=== PATIENT | male | born 1945 | race Caucasian/White ===

== ENCOUNTER 2017-10-11 11:09 | Day surgery (SDC) | payer MEDICARE, OTHER ==
[~2017-10-11] VITALS: Ht 180.3 cm; Wt 86.2 kg
[~2017-10-11 11:09] MED LIST: ASPI81CH PO; ATOR40TA PO; CEPH500 PO; CLOP75 PO; HYDACE5 PO; Hydrochloroth12.5 MG PO; LOSA25 PO; MECL12.5; TRAZ50 PO
== END 2017-10-11 13:01 | disposition home or self-care (01) ==
LOC: ORSCSDS 11:09
PROVIDERS: Internal Medicine Gastroenterology
PROC: 0DBH8ZX Excision of Cecum, Via Natural or Artificial Opening Endoscopic, Diagnostic (ICD-10-PCS; principal; 2017-10-11 12:15)
PROC: 0DBL8ZX Excision of Transverse Colon, Via Natural or Artificial Opening Endoscopic, Diagnostic (ICD-10-PCS; principal; 2017-10-11 12:15)
PROC: 0DBM8ZX Excision of Descending Colon, Via Natural or Artificial Opening Endoscopic, Diagnostic (ICD-10-PCS; principal; 2017-10-11 12:15)
DX: Z12.11 Encounter for screening for malignant neoplasm of colon (principal); D12.3 Benign neoplasm of transverse colon; D12.4 Benign neoplasm of descending colon; K63.5 Polyp of colon; K64.8 Other hemorrhoids; I69.398 Other sequelae of cerebral infarction; H53.9 Unspecified visual disturbance; I10 Essential (primary) hypertension; E78.5 Hyperlipidemia, unspecified; Z86.010 Personal history of colon polyps; Z79.01 Long term (current) use of anticoagulants; Z79.82 Long term (current) use of aspirin; Z79.899 Other long term (current) drug therapy
CPT/HCPCS: 88305; J1980; J7120

== ENCOUNTER → 2020-01-24 | Outpatient (CLI) | payer MEDICARE, OTHER | LOC: PLD 08:01 → LAB SHORT 08:01 | DX: L81.4 Other melanin hyperpigmentation (principal); L73.8 Other specified follicular disorders | CPT/HCPCS: 88342 ==

== ENCOUNTER → 2021-01-27 | Outpatient (CLI) | payer MEDICARE, OTHER ==
[2021-01-27 16:20] LABS: Alanine Aminotransfer (ALT/SGP 31 U/L (12-78); Albumin, Blood 3.6 g/dL (3.4-5.0); Albumin/Globulin Ratio 1.4 (0.8-1.8); Alk Phos 93 U/L (50-136); Anion Gap 5 mmol/L (6-16); Aspartate Aminotrans (AST/SGOT 23 U/L (12-37); Bilirubin, Total 0.5 mg/dL (0.1-1.0); Blood Urea Nitrogen 25 mg/dL (8-24); Bun/Creatinine Ratio 25.6 (12.0-20.0); CO2, Blood 27 mmol/L (21-32); Calcium, Blood 9.5 mg/dL (8.5-10.1); Chloride, Blood 109 mmol/L (98-108); Creatinine, Blood 0.98 mg/dL (0.60-1.20); Globulin, Blood 2.6 g/dL (2.2-4.0); Glomerular Filtration Rate >60 (60-); Glucose, Blood 98 mg/dL (70-99); Lactate Dehydrogenase (Ld),Bld 210 U/L (100-240); Phosphorus, Blood 3.2 mg/dL (2.5-4.9); Potassium, Blood 4.2 mmol/L (3.5-5.5); Sodium, Blood 141 mmol/L (136-145); Total Protein, Blood 6.2 g/dL (6.4-8.2)
[2021-01-27 16:25] LABS: Thyroxine (T4) 7.9 ug/dL (4.5-12.1)
== END | disposition home or self-care (01) ==
LOC: LAB 13:59 → LAB SHORT 13:59
PROVIDERS: Internal Medicine Hematology & Oncology
DX: C43.9 Malignant melanoma of skin, unspecified (principal); I10 Essential (primary) hypertension
CPT/HCPCS: 80053; 83615; 84100; 84436; 84443

== ENCOUNTER → 2021-02-19 | Outpatient (CLI) | payer MEDICARE, OTHER ==
[2021-02-19 19:25] LABS: Alanine Aminotransfer (ALT/SGP 49 U/L (12-78); Albumin, Blood 3.1 g/dL (3.4-5.0); Albumin/Globulin Ratio 0.9 (0.8-1.8); Alk Phos 83 U/L (50-136); Anion Gap 3 mmol/L (6-16); Aspartate Aminotrans (AST/SGOT 18 U/L (12-37); Bilirubin, Direct <0.1 mg/dL (0.0-0.3); Bilirubin, Indirect Unable to Calculate mg/dL (0.1-0.7); Bilirubin, Total 0.3 mg/dL (0.1-1.0); Blood Urea Nitrogen 43 mg/dL (8-24); Bun/Creatinine Ratio 52.6 (12.0-20.0); CO2, Blood 27 mmol/L (21-32); Calcium, Blood 10.2 mg/dL (8.5-10.1); Chloride, Blood 110 mmol/L (98-108); Creatinine, Blood 0.82 mg/dL (0.60-1.20); Globulin, Blood 3.4 g/dL (2.2-4.0); Glomerular Filtration Rate >60 (60-); Glucose, Blood 90 mg/dL (70-99); Phosphorus, Blood 3.1 mg/dL (2.5-4.9); Potassium, Blood 4.1 mmol/L (3.5-5.5); Sodium, Blood 140 mmol/L (136-145); Thyroid Stimulating Hormone 0.007 uIU/mL (0.360-4.800); Thyroxine (T4) 15.7 ug/dL (4.5-12.1); Total Protein, Blood 6.5 g/dL (6.4-8.2)
[2021-02-20 19:07] LABS: FREE TESTOSTERONE(DIRECT) 11.4 pg/mL (6.6-18.1); TESTOSTERONE, SERUM 772 ng/dL (264-916)
== END | disposition home or self-care (01) ==
LOC: LAB SHORT 10:20
PROVIDERS: Internal Medicine Hematology & Oncology
DX: C43.9 Malignant melanoma of skin, unspecified (principal); I67.9 Cerebrovascular disease, unspecified; I10 Essential (primary) hypertension; E78.00 Pure hypercholesterolemia, unspecified; N40.0 Benign prostatic hyperplasia without lower urinary tract symptoms
CPT/HCPCS: 80053; 80076; 84100; 84402; 84403; 84436; 84443

== ENCOUNTER → 2021-03-05 | Outpatient (CLI) | payer MEDICARE, OTHER ==
[2021-03-05 12:40] LABS: Alanine Aminotransfer (ALT/SGP 28 U/L (12-78); Albumin, Blood 3.1 g/dL (3.4-5.0); Albumin/Globulin Ratio 1.1 (0.8-1.8); Alk Phos 73 U/L (50-136); Anion Gap 5 mmol/L (6-16); Aspartate Aminotrans (AST/SGOT 11 U/L (12-37); Bilirubin, Direct 0.1 mg/dL (0.0-0.3); Bilirubin, Indirect 0.3 mg/dL (0.1-0.7); Bilirubin, Total 0.4 mg/dL (0.1-1.0); Blood Urea Nitrogen 41 mg/dL (8-24); CO2, Blood 29 mmol/L (21-32); Calcium, Blood 9.5 mg/dL (8.5-10.1); Chloride, Blood 108 mmol/L (98-108); Creatinine, Blood 1.17 mg/dL (0.60-1.20); Globulin, Blood 2.7 g/dL (2.2-4.0); Glomerular Filtration Rate >60 (60-); Glucose, Blood 86 mg/dL (70-99); Phosphorus, Blood 3.2 mg/dL (2.5-4.9); Potassium, Blood 4.1 mmol/L (3.5-5.5); Sodium, Blood 142 mmol/L (136-145); Thyroxine (T4) 1.4 ug/dL (4.5-12.1); Total Protein, Blood 5.8 g/dL (6.4-8.2)
== END | disposition home or self-care (01) ==
LOC: LAB SHORT 09:15 → LAB 09:15
PROVIDERS: Internal Medicine Hematology & Oncology
DX: C43.9 Malignant melanoma of skin, unspecified (principal); I67.9 Cerebrovascular disease, unspecified; E78.00 Pure hypercholesterolemia, unspecified
CPT/HCPCS: 80053; 82248; 84100; 84436; 84443

== ENCOUNTER → 2021-03-10 | Outpatient (CLI) | payer MEDICARE, OTHER ==
[2021-03-11 00:59] LABS: C DIFFICILE DNA NEGATIVE (Negative)
== END | disposition home or self-care (01) ==
LOC: LAB 16:15 → LAB SHORT 16:15
PROVIDERS: Internal Medicine Hematology & Oncology
DX: C43.9 Malignant melanoma of skin, unspecified (principal); R19.7 Diarrhea, unspecified
CPT/HCPCS: 87493

== ENCOUNTER → 2021-03-23 | Outpatient (CLI) | payer MEDICARE, OTHER ==
[2021-03-23 12:03] LABS: BASOPHILS ABSOLUTE AUTO 0.03 K/mm3 (0.00-0.23); BASOPHILS PERCENT AUTO 0 % (0-2); EOSINOPHILS ABSOLUTE AUTO 0.19 K/mm3 (0.00-0.68); EOSINOPHILS PERCENT AUTO 3 % (0-6); Hematocrit 41.3 % (37.0-53.0); Hemoglobin 13.8 g/dL (13.5-17.5); IMMATURE GRAN ABSOLUTE AUTO 0.02 K/mm3 (0.00-0.10); IMMATURE GRAN PERCENT AUTO 0 % (0-1); LYMPHOCYTES ABSOLUTE AUTO 1.54 K/mm3 (0.84-5.20); LYMPHOCYTES PERCENT AUTO 23 % (21-46); MONOCYTES ABSOLUTE AUTO 0.51 K/mm3 (0.16-1.47); MONOCYTES PERCENT AUTO 8 % (4-13); Mean Corpuscular HGB 31.4 pg (26.0-34.0); Mean Corpuscular HGB Conc 33.4 g/dL (31.5-36.5); Mean Corpuscular Volume 94 fL (80-100); Mean Platelet Volume 11.3 fL (9.1-12.4); NEUTROPHILS PERCENT AUTO 66 % (41-73); Platelet Count 246 K/mm3 (150-400); RDW Coefficient Variation 13.6 % (11.7-14.2); RDW Standard Deviation 46.8 fL (35.1-46.3); White Blood Cell Count 6.69 K/mm3 (4.00-11.30)
[2021-03-23 12:12] LABS: Thyroid Stimulating Hormone 43.2 uIU/mL (0.360-4.800)
[2021-03-23 12:18] LABS: Albumin, Blood 3.3 g/dL (3.4-5.0); Bilirubin, Total 0.9 mg/dL (0.1-1.0); Bun/Creatinine Ratio 34.4 (12.0-20.0); Calcium, Blood 9.8 mg/dL (8.5-10.1); Creatinine, Blood 1.25 mg/dL (0.60-1.20); Globulin, Blood 3.3 g/dL (2.2-4.0); Phosphorus, Blood 3.6 mg/dL (2.5-4.9); Potassium, Blood 4.8 mmol/L (3.5-5.5); Total Protein, Blood 6.6 g/dL (6.4-8.2)
== END | disposition home or self-care (01) ==
LOC: LAB SHORT 10:15
PROVIDERS: Internal Medicine Hematology & Oncology
DX: C43.9 Malignant melanoma of skin, unspecified (principal); E78.00 Pure hypercholesterolemia, unspecified
CPT/HCPCS: 80053; 84100; 84436; 84443; 85025

== ENCOUNTER 2021-03-30 12:30 | Emergency (ER) | payer MEDICARE, OTHER ==
[~2021-03-30] VITALS: Ht 180.3 cm; Wt 79.4 kg
[2021-03-30 13:20] LABS: BASOPHILS ABSOLUTE AUTO 0.02 K/mm3 (0.00-0.23); BASOPHILS PERCENT AUTO 0 % (0-2); EOSINOPHILS ABSOLUTE AUTO 0.12 K/mm3 (0.00-0.68); EOSINOPHILS PERCENT AUTO 2 % (0-6); Hematocrit 36.2 % (37.0-53.0); Hemoglobin 12.7 g/dL (13.5-17.5); IMMATURE GRAN ABSOLUTE AUTO 0.06 K/mm3 (0.00-0.10); IMMATURE GRAN PERCENT AUTO 1 % (0-1); LYMPHOCYTES PERCENT AUTO 20 % (21-46); MONOCYTES ABSOLUTE AUTO 0.41 K/mm3 (0.16-1.47); MONOCYTES PERCENT AUTO 8 % (4-13); Mean Corpuscular HGB 31.3 pg (26.0-34.0); Mean Corpuscular HGB Conc 35.1 g/dL (31.5-36.5); Mean Corpuscular Volume 89 fL (80-100); Mean Platelet Volume 11.4 fL (9.1-12.4); NEUTROPHILS ABSOLUTE AUTO 3.29 K/mm3 (1.96-9.15); NEUTROPHILS PERCENT AUTO 67 % (41-73); Platelet Count 167 K/mm3 (150-400); RDW Coefficient Variation 12.5 % (11.7-14.2); RDW Standard Deviation 40.7 fL (35.1-46.3); Red Blood Cell Count 4.06 M/mm3 (4.30-5.90)
[2021-03-30 13:48] LABS: Alanine Aminotransfer (ALT/SGP 67 U/L (12-78); Albumin, Blood 2.6 g/dL (3.4-5.0); Albumin/Globulin Ratio 0.9 (0.8-1.8); Alk Phos 78 U/L (50-136); Anion Gap 15 mmol/L (6-16); Aspartate Aminotrans (AST/SGOT 54 U/L (12-37); Bilirubin, Total 1.3 mg/dL (0.1-1.0); Blood Urea Nitrogen 28 mg/dL (8-24); CO2, Blood 26 mmol/L (21-32); Calcium, Blood 8.4 mg/dL (8.5-10.1); Chloride, Blood 86 mmol/L (98-108); Creatinine, Blood 0.93 mg/dL (0.60-1.20); Ethanol (Alcohol), Blood, Med <3 mg/dL; Glomerular Filtration Rate >60 (60-); Glucose, Blood 314 mg/dL (70-99); Potassium, Blood 4.3 mmol/L (3.5-5.5); Sodium, Blood 127 mmol/L (136-145); Total Protein, Blood 5.6 g/dL (6.4-8.2)
[2021-03-30 14:08] LABS: Source, Urine Voided
[2021-03-30 14:15] LABS: Appearance, Urine Clear (Clear); Bilirubin, Urine Neg (Neg); Blood, Urine 4+ (Neg); Color, Urine Yellow (P-Yellow); Glucose Qualitative, Urine 4+ (Neg); Ketones, Urine 4+ (Neg); Leukocyte Esterase, Urine Neg (Neg); Nitrite, Urine Neg (Neg); Protein, Urine Neg (Neg); Specific Gravity, Urine 1.015 (1.003-1.022); Urobilinogen, Urine NORM (Normal)
[2021-03-30 14:24] LABS: U Amphetamine Screen Not Detected; U Barbituate Screen Not Detected; U Benzodiazapine Screen Not Detected; U Buprenorphine Screen Not Detected; U Cannabinoids Screen Not Detected; U Cocaine Screen Not Detected; U Methadone Screen Not Detected; U Methamphetamine Screen Not Detected; U Opiates Screen Not Detected; U Oxycodone Screen Not Detected; U Phencyclidine Screen Not Detected; U Propoxyphene Screen Not Detected
[2021-03-30 14:26] LABS: Bacteria Few /hpf; Squamous Epithelial Cells Not Seen /hpf (Few)
[2021-03-30] MEDS ORDERED: METF500 PO (16:49)
== END 2021-03-30 17:03 | disposition home or self-care (01) ==
LOC: ER 12:30
PROVIDERS: Emergency Medicine
DX: R73.9 Hyperglycemia, unspecified (principal); Z79.899 Other long term (current) drug therapy; Z79.82 Long term (current) use of aspirin; I10 Essential (primary) hypertension
CPT/HCPCS: 36415; 70450; 80053; 81001; 82140; 82947; 85025; 93005; 93010; 99285-25; A9270; G0480

== ENCOUNTER 2021-04-07 19:04 | Observation (INO) | payer MEDICARE, OTHER ==
[~2021-04-07] VITALS: Ht 180.3 cm; Wt 70.3 kg
[~2021-04-07 19:04] MED LIST changes: +METF500 PO
[2021-04-07 19:54] LABS: BASOPHILS ABSOLUTE AUTO 0.07 K/mm3 (0.00-0.23); BASOPHILS PERCENT AUTO 1 % (0-2); EOSINOPHILS ABSOLUTE AUTO 0.05 K/mm3 (0.00-0.68); EOSINOPHILS PERCENT AUTO 1 % (0-6); Hematocrit 38.3 % (37.0-53.0); Hemoglobin 13.5 g/dL (13.5-17.5); IMMATURE GRAN ABSOLUTE AUTO 0.15 K/mm3 (0.00-0.10); IMMATURE GRAN PERCENT AUTO 3 % (0-1); LYMPHOCYTES ABSOLUTE AUTO 1.44 K/mm3 (0.84-5.20); LYMPHOCYTES PERCENT AUTO 30 % (21-46); MONOCYTES ABSOLUTE AUTO 0.45 K/mm3 (0.16-1.47); MONOCYTES PERCENT AUTO 9 % (4-13); Mean Corpuscular HGB 31.3 pg (26.0-34.0); Mean Corpuscular HGB Conc 35.2 g/dL (31.5-36.5); Mean Corpuscular Volume 89 fL (80-100); Mean Platelet Volume 11.3 fL (9.1-12.4); NEUTROPHILS ABSOLUTE AUTO 2.71 K/mm3 (1.96-9.15); NEUTROPHILS PERCENT AUTO 56 % (41-73); Platelet Count 343 K/mm3 (150-400); RDW Coefficient Variation 13.7 % (11.7-14.2); RDW Standard Deviation 44.6 fL (35.1-46.3); Red Blood Cell Count 4.31 M/mm3 (4.30-5.90); White Blood Cell Count 4.87 K/mm3 (4.00-11.30)
[2021-04-07 20:24] LABS: Alanine Aminotransfer (ALT/SGP 91 U/L (12-78); Albumin, Blood 3.3 g/dL (3.4-5.0); Alk Phos 119 U/L (50-136); Anion Gap 18 mmol/L (6-16); Aspartate Aminotrans (AST/SGOT 36 U/L (12-37); Bilirubin, Total 0.9 mg/dL (0.1-1.0); Blood Urea Nitrogen 26 mg/dL (8-24); Bun/Creatinine Ratio 23.2 (12.0-20.0); CO2, Blood 17 mmol/L (21-32); Calcium, Blood 9.7 mg/dL (8.5-10.1); Chloride, Blood 88 mmol/L (98-108); Creatinine, Blood 1.12 mg/dL (0.60-1.20); Globulin, Blood 3.3 g/dL (2.2-4.0); Glomerular Filtration Rate >60 (60-); Glucose, Blood 509 mg/dL (70-99); Potassium, Blood 4.9 mmol/L (3.5-5.5); Sodium, Blood 123 mmol/L (136-145); Total Protein, Blood 6.6 g/dL (6.4-8.2)
[2021-04-07 21:23] LABS: Source, Urine Clean Catch
[2021-04-07 21:26] LABS: Bilirubin, Urine Neg (Neg); Blood, Urine 1+ (Neg); Glucose Qualitative, Urine 4+ (Neg); Ketones, Urine 4+ (Neg); Leukocyte Esterase, Urine Neg (Neg); Nitrite, Urine Pos (Neg); Protein, Urine 1+ (Neg); Urobilinogen, Urine NORM (Normal)
[2021-04-07 21:32] LABS: Beta-hydroxybutyrate 113.4 mg/dL (0.2-2.8)
[2021-04-07 21:33] LABS: Appearance, Urine Clear (Clear); Color, Urine Yellow (P-Yellow)
[2021-04-07 21:34] LABS: Bacteria Few /hpf; Squamous Epithelial Cells Not Seen /hpf (Few)
[2021-04-07 21:49] LABS: Base Excess Venous -12.7 mmol/L; Bicarbonate Venous 14.9 mmol/L (24.0-30.0); PCO2 Venous 34.4 mmHg (38-42); PO2 Venous 39.9 mmHg (38-42); pH Blood Venous 7.24 (7.34-7.37)
[2021-04-07] MEDS ORDERED: LEVSOD100 PO (22:36)
[2021-04-07 22:53] LABS: Phosphorus, Blood 3.4 mg/dL (2.5-4.9)
[2021-04-08 00:01] LABS: SARS-Cov-2 (COVID-19) PCR, MMC NEGATIVE (NEGATIVE)
[2021-04-08 01:58] LABS: Anion Gap 16 mmol/L (6-16); Blood Urea Nitrogen 24 mg/dL (8-24); CO2, Blood 20 mmol/L (21-32); Chloride, Blood 96 mmol/L (98-108); Glomerular Filtration Rate >60 (60-); Glucose, Blood 233 mg/dL (70-99); Potassium, Blood 3.7 mmol/L (3.5-5.5); Sodium, Blood 132 mmol/L (136-145)
[2021-04-08 05:59] LABS: Anion Gap 6 mmol/L (6-16); Blood Urea Nitrogen 23 mg/dL (8-24); Bun/Creatinine Ratio 25.7 (12.0-20.0); CO2, Blood 27 mmol/L (21-32); Calcium, Blood 8.9 mg/dL (8.5-10.1); Chloride, Blood 102 mmol/L (98-108); Glomerular Filtration Rate >60 (60-); Glucose, Blood 115 mg/dL (70-99); Potassium, Blood 3.6 mmol/L (3.5-5.5); Sodium, Blood 135 mmol/L (136-145)
[2021-04-08 10:17] LABS: Anion Gap 5 mmol/L (6-16); Blood Urea Nitrogen 22 mg/dL (8-24); CO2, Blood 26 mmol/L (21-32); Chloride, Blood 103 mmol/L (98-108); Creatinine, Blood 0.84 mg/dL (0.60-1.20); Glucose, Blood 109 mg/dL (70-99); Potassium, Blood 3.8 mmol/L (3.5-5.5); Sodium, Blood 134 mmol/L (136-145)
[2021-04-08 10:18] LABS: Bun/Creatinine Ratio 26.3 (12.0-20.0); Glomerular Filtration Rate >60 (60-)
[2021-04-08] MEDS ORDERED: METF500 PO (13:45)
[2021-04-08] MEDS ORDERED: ACET325 PO (13:46)
[2021-04-08] MEDS ORDERED: CEFP200 PO (13:47)
[2021-04-08] MEDS ORDERED: ONDA4 PO (13:47)
[2021-04-08] MEDS ORDERED: VISBIOME 112.51 EACH PO (13:48)
[2021-04-08] MEDS ORDERED: SERT25 PO (13:48)
[2021-04-08] MEDS ORDERED: SENN187 PO (13:48)
[2021-04-08 14:00] LABS: BASOPHILS ABSOLUTE AUTO 0.04 K/mm3 (0.00-0.23); BASOPHILS PERCENT AUTO 1 % (0-2); EOSINOPHILS ABSOLUTE AUTO 0.08 K/mm3 (0.00-0.68); EOSINOPHILS PERCENT AUTO 2 % (0-6); Hemoglobin 11.3 g/dL (13.5-17.5); IMMATURE GRAN ABSOLUTE AUTO 0.09 K/mm3 (0.00-0.10); IMMATURE GRAN PERCENT AUTO 2 % (0-1); LYMPHOCYTES ABSOLUTE AUTO 0.94 K/mm3 (0.84-5.20); LYMPHOCYTES PERCENT AUTO 18 % (21-46); MONOCYTES ABSOLUTE AUTO 0.56 K/mm3 (0.16-1.47); MONOCYTES PERCENT AUTO 11 % (4-13); Mean Corpuscular HGB 31.7 pg (26.0-34.0); Mean Corpuscular HGB Conc 36.5 g/dL (31.5-36.5); Mean Corpuscular Volume 87 fL (80-100); Mean Platelet Volume 11.1 fL (9.1-12.4); NEUTROPHILS ABSOLUTE AUTO 3.54 K/mm3 (1.96-9.15); NEUTROPHILS PERCENT AUTO 67 % (41-73); Platelet Count 260 K/mm3 (150-400); RDW Coefficient Variation 14.1 % (11.7-14.2); Red Blood Cell Count 3.56 M/mm3 (4.30-5.90); White Blood Cell Count 5.25 K/mm3 (4.00-11.30)
[2021-04-08] MEDS ORDERED: HUMULIN R100 UNIT/2 SC (14:15)
[2021-04-08 14:19] LABS: Anion Gap 8 mmol/L (6-16); Blood Urea Nitrogen 22 mg/dL (8-24); Bun/Creatinine Ratio 27.3 (12.0-20.0); CO2, Blood 22 mmol/L (21-32); Calcium, Blood 9.1 mg/dL (8.5-10.1); Chloride, Blood 103 mmol/L (98-108); Creatinine, Blood 0.81 mg/dL (0.60-1.20); Glomerular Filtration Rate >60 (60-); Glucose, Blood 180 mg/dL (70-99); Magnesium, Blood 1.8 mg/dL (1.6-2.4); Phosphorus, Blood 2.3 mg/dL (2.5-4.9); Potassium, Blood 3.8 mmol/L (3.5-5.5); Sodium, Blood 133 mmol/L (136-145)
== END 2021-04-08 16:03 | disposition home or self-care (01) ==
LOC: ER 19:04 → ICUW 19:05 → ER 22:46 → ICUW 22:46
PROVIDERS: Emergency Medicine; Family Medicine; Physician Assistant; ADMIT Internal Medicine
DX: E09.10 Drug or chemical induced diabetes mellitus with ketoacidosis without coma (principal); D84.821 Immunodeficiency due to drugs; E78.5 Hyperlipidemia, unspecified; I10 Essential (primary) hypertension; N39.0 Urinary tract infection, site not specified; C43.9 Malignant melanoma of skin, unspecified; Z79.52 Long term (current) use of systemic steroids; Z79.84 Long term (current) use of oral hypoglycemic drugs; Z23 Encounter for immunization; Z20.822 Contact with and (suspected) exposure to COVID-19
CPT/HCPCS: 36415; 80048; 80053; 81001; 82010; 82803; 82947; 83036; 83735; 84100; 85025; 87086; 90686; 99285; A9270; G0008; J0696; J1650; J1815; J3480; J7030; U0004

== ENCOUNTER → 2021-07-09 | Outpatient (CLI) | payer MEDICARE, OTHER ==
[~2021-07-09] MED LIST changes: +ACET325 PO; +CEFP200 PO; +HUMULIN R100 UNIT/2 SC; +LEVSOD100 PO; +ONDA4 PO; +SENN187 PO; +SERT25 PO; +VISBIOME 112.51 EACH PO
[2021-07-09 20:56] LABS: Albumin, Blood 3.7 g/dL (3.4-5.0); Albumin/Globulin Ratio 1.4 (0.8-1.8); Bilirubin, Direct 0.3 mg/dL (0.0-0.3); Bilirubin, Indirect 0.6 mg/dL (0.1-0.7); Bilirubin, Total 0.9 mg/dL (0.1-1.0); Calcium, Blood 9.8 mg/dL (8.5-10.1); Creatinine, Blood 1.5 mg/dL (0.60-1.20); Globulin, Blood 2.7 g/dL (2.2-4.0); Phosphorus, Blood 3.3 mg/dL (2.5-4.9); Potassium, Blood 3.7 mmol/L (3.5-5.5); Thyroid Stimulating Hormone 97.3 uIU/mL (0.360-4.800); Thyroxine (T4) 0.9 ug/dL (4.5-12.1); Total Protein, Blood 6.4 g/dL (6.4-8.2)
== END ==
LOC: LAB SHORT 18:33
PROVIDERS: Internal Medicine Hematology & Oncology
DX: C43.9 Malignant melanoma of skin, unspecified (principal); I67.9 Cerebrovascular disease, unspecified; E03.9 Hypothyroidism, unspecified; Z79.4 Long term (current) use of insulin
CPT/HCPCS: 80053; 80076; 82248; 83615; 84100; 84436; 84443

== ENCOUNTER 2021-08-11 18:00 | Emergency (ER) | payer MEDICARE, OTHER ==
[~2021-08-11] VITALS: Ht 180.3 cm; Wt 74.8 kg
[2021-08-11 19:12] LABS: BASOPHILS ABSOLUTE AUTO 0.02 K/mm3 (0.00-0.23); BASOPHILS PERCENT AUTO 1 % (0-2); EOSINOPHILS ABSOLUTE AUTO 0.01 K/mm3 (0.00-0.68); EOSINOPHILS PERCENT AUTO 0 % (0-6); Hematocrit 35.9 % (37.0-53.0); Hemoglobin 12.6 g/dL (13.5-17.5); IMMATURE GRAN PERCENT AUTO 0 % (0-1); LYMPHOCYTES ABSOLUTE AUTO 0.98 K/mm3 (0.84-5.20); LYMPHOCYTES PERCENT AUTO 29 % (21-46); MONOCYTES ABSOLUTE AUTO 0.45 K/mm3 (0.16-1.47); MONOCYTES PERCENT AUTO 13 % (4-13); Mean Corpuscular HGB 34.8 pg (26.0-34.0); Mean Corpuscular HGB Conc 35.1 g/dL (31.5-36.5); Mean Corpuscular Volume 99 fL (80-100); Mean Platelet Volume 10.8 fL (9.1-12.4); NEUTROPHILS PERCENT AUTO 57 % (41-73); Platelet Count 216 K/mm3 (150-400); RDW Coefficient Variation 14.3 % (11.7-14.2); RDW Standard Deviation 51.5 fL (35.1-46.3); Red Blood Cell Count 3.62 M/mm3 (4.30-5.90); White Blood Cell Count 3.36 K/mm3 (4.00-11.30)
[2021-08-11 19:34] LABS: Albumin, Blood 3.5 g/dL (3.4-5.0); Albumin/Globulin Ratio 1.3 (0.8-1.8); Bilirubin, Total 0.7 mg/dL (0.1-1.0); Bun/Creatinine Ratio 22.6 (12.0-20.0); Calcium, Blood 9.6 mg/dL (8.5-10.1); Creatinine, Blood 1.33 mg/dL (0.60-1.20); Globulin, Blood 2.7 g/dL (2.2-4.0); Total Protein, Blood 6.2 g/dL (6.4-8.2)
[2021-08-11] MEDS ORDERED: INSULANI (21:49)
[2021-08-11] MEDS ORDERED: TRAZ50 PO (21:49)
[2021-08-11] MEDS ORDERED: METO25ER PO (21:50)
[2021-08-11] MEDS ORDERED: IMODIUM A-D2 M1 (21:50)
== END 2021-08-11 22:52 | disposition home or self-care (01) ==
LOC: ER 18:00
PROVIDERS: Physician Assistant
DX: R55 Syncope and collapse (principal); E86.0 Dehydration; I10 Essential (primary) hypertension; Z88.8 Allergy status to other drugs, medicaments and biological substances; Z79.899 Other long term (current) drug therapy; Z79.4 Long term (current) use of insulin
CPT/HCPCS: 36415; 80053; 85025; 93005; 93010; 99284-25

== ENCOUNTER → 2021-08-27 | Outpatient (CLI) | payer MEDICARE, OTHER ==
[~2021-08-27] MED LIST changes: +IMODIUM A-D2 M1; +INSULANI; +METO25ER PO; +ONDA4ODT SL
[2021-08-27 18:34] LABS: Albumin, Blood 3.2 g/dL (3.4-5.0); Albumin/Globulin Ratio 1.2 (0.8-1.8); Bilirubin, Total 0.9 mg/dL (0.1-1.0); Bun/Creatinine Ratio 23.3 (12.0-20.0); Calcium, Blood 9.5 mg/dL (8.5-10.1); Creatinine, Blood 1.46 mg/dL (0.60-1.20); Globulin, Blood 2.7 g/dL (2.2-4.0); Phosphorus, Blood 3.8 mg/dL (2.5-4.9); Potassium, Blood 3.9 mmol/L (3.5-5.5); Total Protein, Blood 5.9 g/dL (6.4-8.2)
== END | disposition home or self-care (01) ==
LOC: LAB SHORT 15:47 → PLD 15:47
PROVIDERS: Internal Medicine Hematology & Oncology
DX: C43.9 Malignant melanoma of skin, unspecified (principal)
CPT/HCPCS: 80053; 84100

== ENCOUNTER → 2021-09-15 | Outpatient (CLI) | payer MEDICARE, OTHER ==
[~2021-09-15] MED LIST changes: -ONDA4ODT SL
[2021-09-15 20:56] LABS: Albumin, Blood 3.4 g/dL (3.4-5.0); Albumin/Globulin Ratio 1.2 (0.8-1.8); Calcium, Blood 9.7 mg/dL (8.5-10.1); Creatinine, Blood 1.31 mg/dL (0.60-1.20); Globulin, Blood 2.9 g/dL (2.2-4.0); Phosphorus, Blood 4.1 mg/dL (2.5-4.9); Potassium, Blood 4.5 mmol/L (3.5-5.5); Thyroid Stimulating Hormone 81.6 uIU/mL (0.360-4.800); Thyroxine (T4) 2.5 ug/dL (4.5-12.1); Total Protein, Blood 6.3 g/dL (6.4-8.2)
== END | disposition home or self-care (01) ==
LOC: LAB SHORT 14:00
PROVIDERS: Internal Medicine Hematology & Oncology
DX: C43.9 Malignant melanoma of skin, unspecified (principal); E03.9 Hypothyroidism, unspecified; E11.9 Type 2 diabetes mellitus without complications
CPT/HCPCS: 80053; 83036; 84100; 84436; 84443

== ENCOUNTER → 2021-10-06 | Outpatient (CLI) | payer MEDICARE, OTHER | END | disposition home or self-care (01) | LOC: LAB SHORT 14:39 | DX: E53.8 Deficiency of other specified B group vitamins (principal) | CPT/HCPCS: 82607; 82746 ==

== ENCOUNTER → 2021-10-19 | Outpatient (CLI) | payer MEDICARE, OTHER ==
[2021-10-19 19:46] LABS: Alanine Aminotransfer (ALT/SGP 37 U/L (12-78); Albumin, Blood 3.2 g/dL (3.4-5.0); Albumin/Globulin Ratio 1.1 (0.8-1.8); Alk Phos 97 U/L (50-136); Anion Gap 6 mmol/L (6-16); Aspartate Aminotrans (AST/SGOT 36 U/L (12-37); Bilirubin, Total 0.7 mg/dL (0.1-1.0); Blood Urea Nitrogen 24 mg/dL (8-24); Bun/Creatinine Ratio 21.1 (12.0-20.0); CO2, Blood 34 mmol/L (21-32); Calcium, Blood 9.2 mg/dL (8.5-10.1); Chloride, Blood 90 mmol/L (98-108); Creatinine, Blood 1.14 mg/dL (0.60-1.20); Globulin, Blood 2.8 g/dL (2.2-4.0); Glomerular Filtration Rate >60 (60-); Glucose, Blood 203 mg/dL (70-99); Potassium, Blood 3.9 mmol/L (3.5-5.5); Sodium, Blood 130 mmol/L (136-145); Thyroxine (T4) 2.5 ug/dL (4.5-12.1)
== END ==
LOC: LAB SHORT 14:08
PROVIDERS: Internal Medicine Hematology & Oncology
DX: C43.9 Malignant melanoma of skin, unspecified (principal); E53.8 Deficiency of other specified B group vitamins
CPT/HCPCS: 80053; 82607; 82746; 84100; 84436; 84443

== ENCOUNTER → 2022-01-21 | Outpatient (CLI) | payer MEDICARE, OTHER ==
[~2022-01-21] MED LIST changes: +ONDA4ODT SL
[2022-01-21 20:20] LABS: Thyroid Stimulating Hormone 11.7 uIU/mL (0.360-4.800); Thyroxine (T4) 6.9 ug/dL (4.5-12.1)
[2022-01-21 20:24] LABS: Albumin, Blood 3.3 g/dL (3.4-5.0); Albumin/Globulin Ratio 1.3 (0.8-1.8); Bilirubin, Total 0.9 mg/dL (0.1-1.0); Bun/Creatinine Ratio 63.6 (12.0-20.0); Calcium, Blood 8.9 mg/dL (8.5-10.1); Creatinine, Blood 0.77 mg/dL (0.60-1.20); Globulin, Blood 2.5 g/dL (2.2-4.0); Phosphorus, Blood 2.7 mg/dL (2.5-4.9); Total Protein, Blood 5.8 g/dL (6.4-8.2)
== END | disposition home or self-care (01) ==
LOC: LAB SHORT 15:22
PROVIDERS: Internal Medicine Hematology & Oncology
DX: C43.9 Malignant melanoma of skin, unspecified (principal); E03.9 Hypothyroidism, unspecified; E11.9 Type 2 diabetes mellitus without complications
CPT/HCPCS: 80053; 83036; 83615; 84100; 84436; 84443

== ENCOUNTER 2022-01-25 16:59 | Emergency (ER) | payer MEDICARE, OTHER ==
[~2022-01-25] VITALS: Ht 180.3 cm; Wt 63.5 kg
[~2022-01-25 16:59] MED LIST changes: -ONDA4ODT SL
[2022-01-25 17:42] LABS: BASOPHILS PERCENT AUTO 0 % (0-2); EOSINOPHILS ABSOLUTE AUTO 0.01 K/mm3 (0.00-0.68); EOSINOPHILS PERCENT AUTO 0 % (0-6); Hematocrit 23.1 % (37.0-53.0); Hemoglobin 8.6 g/dL (13.5-17.5); IMMATURE GRAN ABSOLUTE AUTO 0.01 K/mm3 (0.00-0.10); IMMATURE GRAN PERCENT AUTO 0 % (0-1); LYMPHOCYTES ABSOLUTE AUTO 0.97 K/mm3 (0.84-5.20); LYMPHOCYTES PERCENT AUTO 30 % (21-46); MONOCYTES ABSOLUTE AUTO 0.23 K/mm3 (0.16-1.47); MONOCYTES PERCENT AUTO 7 % (4-13); Mean Corpuscular HGB 36.6 pg (26.0-34.0); Mean Corpuscular HGB Conc 37.2 g/dL (31.5-36.5); Mean Corpuscular Volume 98 fL (80-100); Mean Platelet Volume 10.2 fL (9.1-12.4); NEUTROPHILS ABSOLUTE AUTO 1.99 K/mm3 (1.96-9.15); NEUTROPHILS PERCENT AUTO 62 % (41-73); Platelet Count 143 K/mm3 (150-400); RDW Coefficient Variation 13.7 % (11.7-14.2); RDW Standard Deviation 49.1 fL (35.1-46.3); Red Blood Cell Count 2.35 M/mm3 (4.30-5.90); White Blood Cell Count 3.21 K/mm3 (4.00-11.30)
[2022-01-25 18:18] LABS: Albumin, Blood 2.7 g/dL (3.4-5.0); Bilirubin, Total 0.8 mg/dL (0.1-1.0); Bun/Creatinine Ratio 67.5 (12.0-20.0); Calcium, Blood 8.6 mg/dL (8.5-10.1); Creatinine, Blood 0.76 mg/dL (0.60-1.20); Globulin, Blood 2.7 g/dL (2.2-4.0); Potassium, Blood 3.5 mmol/L (3.5-5.5); Total Protein, Blood 5.4 g/dL (6.4-8.2)
[2022-01-25] MEDS ORDERED: ONDA4ODT SL (22:28)
[2022-01-28 01:07] LABS: HBSAG SCREEN Negative (Negative); HCV AB 0.2 (0.0-0.9); HEP A AB, IGM Negative (Negative); HEP B CORE AB, IGM Negative (Negative)
== END 2022-01-26 00:32 | disposition home or self-care (01) ==
LOC: ER 16:59
PROVIDERS: Emergency Medicine
DX: R53.1 Weakness (principal); K75.9 Inflammatory liver disease, unspecified; C79.2 Secondary malignant neoplasm of skin; E78.5 Hyperlipidemia, unspecified; I10 Essential (primary) hypertension; Z88.8 Allergy status to other drugs, medicaments and biological substances; Z79.4 Long term (current) use of insulin; Z79.899 Other long term (current) drug therapy
CPT/HCPCS: 76705; 80053; 83690; 85025; 93005; 93010; A9270